=== PATIENT | female | born 1985 | race Caucasian/White ===

== ENCOUNTER 2017-04-22 11:02 | Emergency (ER) | payer OTHER ==
[2017-04-22] MEDS ORDERED: Alum Hydrox/Mag Hydrox/Simeth 15 ML, Metoclopramide 5 MG, Lidocaine 2% 5 ML PO ONE ×3 (11:35)
--- NOTE | 2017-04-22 11:35 | EDM.PDOC ---
ED HPI GENERAL MEDICAL PROBLEM - General Chief Complaint: ENT Problem Stated Complaint: BURNING IN CHEST AND THROAT Time Seen by Provider: 04/22/17 11:13 Source of Information: Reports: Patient History Limitations: Reports: No Limitations - History of Present Illness INITIAL COMMENTS - FREE TEXT/NARRATIVE: HISTORY AND PHYSICAL: History of present illness: Patient is a 32-year-old female who presents to the emergency room today with complaints of a sore throat and "heartburn". States last night that she made a ham and cheese sandwich shortly after had burning in her epigastric area. She reports she only took a couple bites and it tasted "bad" entered away. Since that time has had this burning sensation. Also complains of a sore throat 3 days. Has subjective fevers, none recorded at home. Denies any abdominal pain, nausea, vomiting, diarrhea. Denies any chest pain, shortness of breath. Has not received the [id number] influenza vaccine Review of systems: As per history of present illness and below otherwise all systems reviewed and negative. Past medical history: As per history of present illness and as reviewed below otherwise noncontributory. Surgical history: As per history of present illness and as reviewed below otherwise noncontributory. Social history: No reported history of drug or alcohol abuse. Family history: As per history of present illness and as reviewed below otherwise noncontributory. Physical exam: Gen.: Well-developed and well-nourished 32-year-old female. Alert and oriented. Appears in no acute distress and is nontoxic appearing. HEENT: Atraumatic, normocephalic, pupils reactive, negative for conjunctival pallor or scleral icterus, mucous membranes moist, throat clear, neck supple, nontender, trachea midline. Lungs: Clear to auscultation, breath sounds equal bilaterally, chest nontender. Heart: S1S2, regular, negative for clicks, rubs, or JVD. Abdomen: Soft, nondistended, nontender. No epigastric tenderness. No rebound tenderness. Negative for masses or hepatosplenomegaly. Negative for costovertebral tenderness. Pelvis: Stable nontender. Genitourinary: Deferred. Rectal: Deferred. Extremities: Atraumatic, negative for cords or calf pain. Neurovascular unremarkable. Neuro: Awake, alert, oriented. Cranial nerves II through XII unremarkable. Cerebellum unremarkable. Motor and sensory unremarkable throughout. Exam nonfocal. The strep screen is negative at this time. The patient still does have slightly enlarged tonsils with mild erythema and no exudate - and she is a smoker. I'll treat her as a tonsillitis with Z-Anam (penicillin allergy). Prescription for an Phenergan with codeine was also given, 5 MLS every 4-6 hours as needed (dispense #150ml - NR). Patient had complete relief with the GI cocktail. Would like the patient to take omeprazole once daily 30 minutes prior to meals for the next couple weeks. We discussed following up with her primary caregiver if she continues to have heartburn. She voices understanding and is agreeable to plan of care. She denies any further questions at this time Diagnostics: Strep swab, chest x-ray Therapeutics: GI cocktail Impression: Tonsillitis, heartburn Plan: 1. Strep screen was negative. We'll treat as you're tonsillitis with Z-Anam. For your sore throat a prescription for Phenergan with codeine has been given to you. You may take 5 MLS every 4-6 hours as needed. Do not take this medication while driving or needing to be functioning at work as it may cause drowsiness. 2. Please get a new toothbrush to being on your antibiotics for 48 hours. This will prevent too from re-infecting yourself. He may use Tylenol and/or ibuprofen as needed for additional pain management. Warm salt water gargles 3-4 times daily. 3. Follow-up with your primary caregiver in the next 1-2 days. Return to the ED as needed and as discussed. Definitive disposition and diagnosis as appropriate pending reevaluation and review of above. Duration: Day(s): Location: Reports: Neck Throat Pain Score (Numeric/FACES): 7 - Related Data Allergies Allergy/AdvReac Type Severity Reaction Status Date / Time Penicillins Allergy Hives Verified 04/22/17 11:29 Home Meds: Home Meds . [No Known Home Meds] 04/22/17 [History] ED ROS ENT - Review of Systems Review Of Systems: ROS reveals no pertinent complaints other than HPI. ED EXAM, ENT - Physical Exam Exam: See Below (See dictation) Course - Vital Signs Last Recorded V/S: Last Vital Signs Temp 98.1 F 12/04/17 11:29 Pulse 98 04/22/17 11:29 Resp 16 04/22/17 11:29 BP 109/56 L 04/22/17 11:29 Pulse Ox 96 04/22/17 11:29 - Orders/Labs/Meds Orders: Active Orders 24 hr Category Date Time Status CULTURE STREP A CONFIRMATION [RM] Stat Lab 04/22/17 11:47 Results STREP SCRN A RAPID W CULT CONF [RM] Stat Lab 04/22/17 11:47 Results Labs: Laboratory Tests 04/22/17 04/22/17 Range/Units 11:53 11:53 WBC 10.87 (4.0-11.0) K/uL RBC 5.81 (4.30-5.90) M/uL Hgb 11.8 L (12.0-16.0) g/dL Hct 36.3 (36.0-46.0) % MCV 62.5 L (80.0-98.0) fL MCH 20.3 L (27.0-32.0) pg MCHC 32.5 (31.0-37.0) g/dL RDW Std Deviation 33.9 (28.0-62.0) fl RDW Coeff of Billy 16 H (11.0-15.0) % Plt Count 175 (150-400) K/uL Neut % (Auto) 71.1 (48.0-80.0) % Lymph % (Auto) 20.1 (16.0-40.0) % Grady % (Auto) 6.8 (0.0-15.0) % Eos % (Auto) 1.8 (0.0-7.0) % Baso % (Auto) 0.2 (0.0-1.5) % Neut # (Auto) 7.7 H (1.4-5.7) K/uL Lymph # (Auto) 2.2 (0.6-2.4) K/uL Grady # (Auto) 0.7 (0.0-0.8) K/uL Eos # (Auto) 0.2 (0.0-0.7) K/uL Baso # (Auto) 0.0 (0.0-0.1) K/uL Nucleated RBC % 0.0 /100WBC Nucleated RBCs # 0 K/uL Sodium 138 (136-146) mmol/L Potassium 4.1 (3.5-5.1) mmol/L Chloride 109 (98-110) mmol/L Carbon Dioxide 21 (21-31) mmol/L BUN 16 (6.0-23.0) mg/dL Creatinine 0.7 (0.6-1.5) mg/dL Est Cr Clr Drug Dosing TNP Estimated GFR (MDRD) > 60.0 ml/min Glucose 95 (60-110) mg/dL Calcium 8.8 (8.8-10.8) mg/dL Total Bilirubin 0.4 (0.1-1.5) mg/dL AST 15 (5-40) IU/L ALT 12 (8-54) IU/L Alkaline Phosphatase 46 (40-150) Total Protein 7.2 (6.0-8.0) g/dL Albumin 4.1 (3.5-5.0) g/dL Globulin 3.1 (2.0-3.5) g/dL Albumin/Globulin Ratio 1.32 Meds: Medications Discontinued Medications Generic Name Dose Route Start Last Admin Trade Name Freq PRN Reason Stop Dose Admin Al Hydroxide/Mg Hydroxide 15 0 ml 04/22/17 11:35 04/22/17 11:48 ml/ Metoclopramide HCl 5 mg/ PO 04/22/17 11:36 1 each Lidocaine HCl 5 ml ONETIME ONE Administration Departure - Departure Time of Disposition: 12:56 Disposition: Home, Self-Care 01 Clinical Impression: Tonsillitis, Heartburn - Discharge Information Instructions: Tonsillitis, [id number], Heartburn, [id number] Referrals: PCP,None [Primary Care Provider] - Forms: ED Department Discharge Additional Instructions: My general discharge The following information is given to patients seen in the emergency department who are being discharged to home. This information is to outline your options for follow-up care. We provide all patients seen in our emergency department with a follow-up referral. The need for follow-up, as well as the timing and circumstances, are variable depending upon the specifics of your emergency department visit. If you don't have a primary care physician on staff, we will provide you with a referral. We always advise you to contact your personal physician following an emergency department visit to inform them of the circumstance of the visit and for follow-up with them and/or the need for any referrals to a consulting specialist. The emergency department will also refer you to a specialist when appropriate. This referral assures that you have the opportunity for follow-up care with a specialist. All of these measure are taken in an effort to provide you with optimal care, which includes your follow-up. Under all circumstances we always encourage you to contact your private physician who remains a resource for coordinating your care. When calling for follow-up care, please make the office aware that this follow-up is from your recent emergency room visit. If for any reason you are refused follow-up, please contact the [facility] Emergency Department at and asked to speak to the emergency department charge nurse. [facility] [address] [place] [id number] 1. Strep screen was negative. We'll treat as you're tonsillitis with Z-Anam. For your sore throat a prescription for Phenergan with codeine has been given to you. You may take 5 MLS every 4-6 hours as needed. Do not take this medication while driving or needing to be functioning at work as it may cause drowsiness. 2. Please get a new toothbrush to being on your antibiotics for 48 hours. This will prevent too from re-infecting yourself. He may use Tylenol and/or ibuprofen as needed for additional pain management. Warm salt water gargles 3-4 times daily. 3. Follow-up with your primary caregiver in the next 1-2 days. Return to the ED as needed and as discussed. - My Orders Last 24 Hours: My Active Orders 04/22/17 11:47 CULTURE STREP A CONFIRMATION [RM] Stat STREP SCRN A RAPID W CULT CONF [] Stat - Assessment/Plan Last 24 Hours: My Active Orders 04/22/17 11:47 CULTURE STREP A CONFIRMATION [RM] Stat STREP SCRN A RAPID W CULT CONF [] Stat
[2017-04-22 12:30] LABS: CHLORIDE,CL 109 mmol/L (98-110); SODIUM,NA 138 mmol/L (136-146)
--- NOTE | 2017-04-22 12:42 | CR ---
EXAMINATION: Portable chest radiograph. HISTORY: Cough. FINDINGS: The trachea is midline. The cardiomediastinal silhouette is within normal limits. No pulmonary infilt rates, effusions or pneumothorax. Osseous structures appear unremarkable. IMPRESSION: No acute cardiopulmonary process.
== END 2017-04-22 13:09 | disposition home or self-care (01) ==
LOC: MW.ED 11:02
DX: J03.90 Acute tonsillitis, unspecified (principal); R12 Heartburn; Z88.0 Allergy status to penicillin
CPT/HCPCS: 36415; 71010; 80053; 85025; 87081; 87880; 99283; A9270; 99284